=== PATIENT | male | born 1980 | race Caucasian/White ===

== ENCOUNTER 2021-01-11 16:13 | Observation (INO) | payer BC, SELFPAY ==
[2021-01-11 16:14] VITALS: BP 141/77; PULSE 77; RESP 18; TEMP 37.1; O2SAT 97; BMI 23.0
--- NOTE | 2021-01-11 17:11 | ED.DCSUM_ITS ---
- ER Visit Summary Date of Service: 01/11/21 Chief Complaint: Fioricet abuse History of Present Illness: The patient is a 40 M 3 of anxiety, PTSD and migraine headaches. States he gets Fioricet from his primary care provider and typically takes 90 of them in a 2-week period of time. A coworker brought him in today to consider getting detox. Patient thinks is more of an anxiety issue. He is not suicidal. That is a lot of issues going on at home including problems with his daughter. Physical Examination: Middle-aged male no acute distress vital signs stable afebrile. HEENT exam unremarkable. Neck nontender no lymphadenopathy. Lungs clear to auscultation bilaterally. Heart regular rhythm no murmur rate about 75. Abdomen soft nontender normal bowel sounds no peritoneal signs. Patient is moving all 4 extremities. Nontender. Normal range of motion. No edema. Neurologically is awake alert with no focal motor deficits. Test Results: None Emergency Department Course and Treatment: We will speak to the hospitalist to see if they would admit this patient for detox of Fioricet abuse. Treatment Plan: The list spoke to the detox physician who agreed on admission. Disposition: admission Impression: Fioricet abuse requesting detox History of anxiety This note was generated with [employer] dictation software. It may contain incorrect words, spelling, and punctuation that were not noted in review of the chart prior to signing ED Disposition - Plan for ED Patient: Referrals: NOT,DEFINED [NON-STAFF] -
--- NOTE | 2021-01-11 17:40 | NURSING ---
MED SURG MIGEL DETOX
--- NOTE | 2021-01-11 18:00 | HP.PCM_ITS ---
<Gabbi Ross - Last Filed: 01/11/21 18:00> Problem List (1) Barbiturate abuse-continuous Status: Chronic (2) Anxiety Status: Chronic (3) Traumatic brain injury Status: Chronic (4) Migraine Status: Acute (5) Tobacco abuse Status: Acute History of Present Illness Date of Admission: 01/11/21 Chief Complaint: Barbiturate withdrawal The patient is a 40 year old M who presents today interested in withdrawing from Fioricet. Patient reports he began taking this years ago following his traumatic brain injury due to migraines and takes up to 90 pills in a 2-week. Patient states he also suffers from anxiety and posttraumatic stress disorder. Patient states he has recently had increased stressors in his life including a possible divorce and his daughter being hospitalized. Patient also takes Xanax and Seroquel daily. Patient reports he has not slept in 4 days and has had low appetite. Past Medical History Past Medical History (Chronic Problems): Chronic Problems Traumatic brain injury (Chronic) Anxiety (Chronic) Barbiturate abuse-continuous (Chronic) PTSD (post-traumatic stress disorder) (Chronic) Allergies No Known Allergies Allergy (Verified 01/11/21 16:16) Home Medications: Ambulatory Orders Medication Instructions Recorded ALPRAZolam [Xanax] 1 mg PO BID 01/11/21 Acetaminophen/Butalbital/Caffe 1 tab PO TID 01/11/21 [Fioricet] Quetiapine Fumarate [Seroquel] 400 mg PO QHS 01/11/21 Surgical History: noncontributory Psychiatric History: Anxiety, Post traumatic stress Smoking Status: Current every day smoker Tobacco Use: Cigarettes Drugs: None - *Family History Maternal History Items: No pertinent history Paternal History Items: No pertinent history Review of Systems Constitutional: Denies: Chills, Fever, Weight Change HEENT: Reports: Head Aches - Chronic. Denies: Sinus Congestion, Sinus Drainage Cardiovascular: Denies: Chest Pain, Palpitations Respiratory: Denies: Cough, Shortness of breath at rest, Sputum production Gastrointestinal: Denies: Abdominal Pain, Nausea, Vomiting Genitourinary: Denies: Dysuria Musculoskeletal: Denies: Joint Pain, Joint Tenderness Skin: Denies: Rash, Wounds Neurological: Denies: Numbness, Tingling, Focal weakness Psychiatric: Reports: Anxiety. Denies: Depression, Homicidal Ideations, Anne cidal Ideations Hematologic/ Lymphatic: Denies: Easy Bruising, Easy Bleeding VTE Information - Inpt Only VTE Present on Admission: No VTE Mechan Device Prophylaxis: None VTE Pharm Prophylaxis ordered?: No Reason prophylaxis not ordered:: Treatment Not Indicated Patient Problems: Active and Suspected Problems Migraine (Acute) Tobacco abuse (Acute) - Physical Exam Vitals/I&O's: Vital Signs Temp Pulse Resp BP Pulse Ox 98.8 F 77 18 141/77 H 97 01/11/21 16:14 01/11/21 16:14 01/11/21 16:14 01/11/21 16:14 01/11/21 16:14 Oxygen Delivery Method Room Air Weight: 165 lb Body Mass Index (BMI) 23.0 General: Alert, Oriented x3, Cooperative HEENT: Atraumatic, PERRLA, EOMI, Normocephalic Neck: Supple, No JVD, Negative Carotid Bruits Lungs: Clear to auscultation, Normal air movement Cardiovascular: Regular rate, Regular Rhythm, Normal S1, Normal S2, No murmurs Abdomen: Bowel Sounds Present, Soft, Non Tender Extremities: No edema, Capillary Refill Less than 3 Seconds Skin: No rashes, No breakdown Musculoskeletal: No Tenderness to Palpation of Joints or Extremities Neurological: Cranial nerves II-XII grossly intact Psych/Mental Status: Anxious, Restless Assessment/Plan All Active Problems Migraine (Acute) Tobacco abuse (Acute) Barbiturate withdrawal (Acute) 1. Barbiturate withdrawal- will initiate phenobarbital taper and supportive medications per protocol. 2. Anxiety-continue Seroquel nightly. 3. Migraine s/p Traumatic brain injury-will hold off ordering medications at this time due to rebound potential. 4. Tobacco abuse- will initiate nicotine patch 21 mcg. This patient was seen by ARLIN Liu under the supervision of Dr. Campos. <Rachel Campos - Last Filed: 01/11/21 18:51> Problem List (1) PTSD (post-traumatic stress disorder) Status: Chronic (2) Traumatic brain injury Status: Chronic (3) Anxiety Status: Chronic (4) Barbiturate abuse-continuous Status: Chronic (5) Migraine Status: Acute (6) Tobacco abuse Status: Acute (7) Barbiturate withdrawal Status: Acute History of Present Illness I agree with the above and the following is a representation of my independent history and physical exam. Mr. Stuatr is a 40 year old WM the past medical history of chronic headaches status post TBI in 2002, anxiety, PTSD and tobacco abuse who presented to the emergency department at [facility] on 01/11/2021 for detox from Fioricet. 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 He has had increased stressors in his life that include a pending divorce from his and his daughter recently being hospitalized for a suicide attempt (she is 13 years old). He states has not slept in approximately 4 days. His last dose of Fioricet was yesterday. He has had decreased appetite. His vital signs in the emergency department other than mild hypertension are unremarkable. No labs were obtained. Upon my entering the room for examination the patient was messing with something near the computer and appeared startled when I walked in. He will be admitted to [place] [address] for Fioricet detox. I discussed the case with Dr. Jaeger and she recommended detox with phenobarbital. The patient does indicate on admission that he staying for no more than 2 days and will sign out after 2 days AMA if needed. Past Medical History Allergies No Known Allergies Allergy (Verified 01/11/21 16:16) Psychiatric History: Depression, - Lives: With Family Alcohol: None Review of Systems Constitutional: Reports: Anorexia, Malaise. Denies: Chills, Fever, Weakness, Weight Change, Fatigue Eyes: Denies: Blurred vision, Drainage, Eyelid Inflammation, Pain, Redness, Vision Change HEENT: Reports: Head Aches, Nasal bleeding, Nasal Congestion, Post Nasal Drip, Sinus Congestion, Sinus Drainage, Sore Throat, Visual Changes. Denies: Difficulty Hearing, Difficulty Swallowing, Ear Pain, Eye Pain Cardiovascular: Reports: Chest Pain, Chest Pressure, Chest Tightness, Edema, Light Headedness, Palpitations, Syncope Respiratory: Reports: Cough, Shortness of Breath, Sputum production, Wheezing Gastrointestinal: Denies: Constipation, Diarrhea, Dyspepsia, Hematemesis, Hem atochezia, Nausea, Melena, Vomiting Genitourinary: Denies: Dysuria, Frequency, Urgency Musculoskeletal: Denies: Back Pain, Joint Pain, Joint stiffness, Joint swelling, Joint Tenderness, Muscle pain, Neck Pain Skin: Denies: Dryness, Jaundice, Lesions, Pruritis, Rash, Skin Changes, Wounds Neurological: Denies: Balance problems, Blurred vision, Double vision, Change in Speech, Slurred speech, Confusion, Difficulty swallowing, Focal weakness, Headaches, Incoordination, Numbness, Tingling, Tremor, Seizures Psychiatric: Reports: Anxiety, Depression. Denies: Homicidal Ideations, Suicidal Ideations Endocrine: Denies: Change in Body Habitus, Heat/ Cold Intolerance, Polydipsia, Polyuria Hematologic/ Lymphatic: Denies: Adenopathy, Anemia, Easy Bruising, Petechiae, Purpura - Physical Exam Vitals/I&O's: Vital Signs Temp Pulse Resp BP Pulse Ox 98.6 F 69 18 130/95 H 98 01/11/21 18:39 01/11/21 18:39 01/11/21 18:39 01/11/21 18:39 01/11/21 18:39 Oxygen Delivery Method Room Air Weight: 74.843 kg Body Mass Index (BMI) 23.0 General: Alert, Oriented x3, Cooperative, No apparent distress, Well developed, Well nourished, - - Thin middle-aged male, appears stated age, appears extremely anxious HEENT: Atraumatic, PERRLA, EOMI, Normocephalic, EAC Clear Oral: Moist Mucosa, No Gingival or Mucosal Lesions/ Ulcerations Neck: Supple, Trachea Midline, Thyroid Normal Size and Texture Lungs: Clear to auscultation, Normal air movement, No rhonchi, No wheeze, No rales Cardiovascular: Regular rate, Regular Rhythm, Normal S1, Normal S2, No murmurs, No Ectopic Activity, No rub noted, No Gallop Abdomen: Bowel Sounds Present, Soft, Non Tender, Non-Distended Extremities: No clubbing, No cyanosis, No edema, Capillary Refill Less than 3 Seconds, Peripheral Pulses Normal Skin: No rashes, No breakdown Musculoskeletal: No Tenderness to Palpation of Joints or Extremities Neurological: Cranial nerves II-XII grossly intact, Deep Tendon Reflexes 2+/4 and Symmetrical, Neuro grossly intact, Motor Exam 5/5 strength throughout, Muscle tone normal, Sensory exam intact to light touch and pain, Coordination normal, Gait narrow based and stable Psych/Mental Status: Anxious, Restless, - - Somewhat agitated during conversation regarding the rules of the detox program Assessment/Plan ASSESSMENT Acute barbiturate withdrawal Chronic headaches History of TBI PTSD Anxiety/depression Tobacco abuse PLAN -Discussed the case with Dr. Pagan and she recommended detox with phenobarbital as we would with alcohol -Supportive medications available -180 consult -Rebound headaches are expected--> avoid specific treatment as any medications are going to cause further headaches upon discontinuation -Check a.m. CBC and BMP -Nicotine patch 21 mcg -Patient indicates he is leaving after 48 hours regardless of medical stability and will sign out AMA if at that time if needed Inpatient E&M: 44450 Init Hosp L2
[2021-01-11 18:15] VITALS: BP 145/66; PULSE 75; RESP 16; TEMP 36.8; O2SAT 100
[2021-01-11 18:39] VITALS: BP 130/95; PULSE 69; RESP 18; TEMP 37; O2SAT 98
[2021-01-11 18:40] VITALS: BMI 23.8
--- NOTE | 2021-01-11 18:45 | CM.ED ---
SOCIAL WORK Informant: Dr. Mortensen Patient admitted to [facility] for medical management of withdrawal from Fioricet. Patient reports to take 90 pills in a 2 week period. Patient with history of anxiety and PTSD. Patient reports takes Xanax and Seroquel daily. Call to [facility] Treatment NavigatorDarrian to update on patient's admission and room number. Plan: DIALLO Seay MSW, AEROSPACE PROJECT ENGINEER
[2021-01-11 18:48] VITALS: BMI 23.9
[2021-01-11 20:05] VITALS: BP 139/88; PULSE 78; RESP 16; TEMP 36.9; O2SAT 98
[2021-01-11 20:10] LABS: Absolute Lymphocyte Count 3.43 X10^3/uL (0.83-4.51); Absolute Neutrophil Count 4.7 X10^3/uL (2.0-7.7); Basophil# 0.04 X10^3/uL; Basophil% 0.4 % (0-1); Eosinophil# 0.07 X10^3/uL; Eosinophils% 0.8 % (0-5); Hematocrit 46.4 % (40-54); Hemoglobin 15.9 g/dL (13.0-16.5); Lymphocyte # 3.43 X10^3/ul (4.0); Lymphocyte % 37.6 % (19-41); Mean Corp Hgb Conc 34.3 g/dL (32-36); Mean Corpuscular Hgb 30.6 pg (27.0-32.0); Mean Corpuscular Volume 89.2 fL (80-94); Monocyte# 0.81 X10^3/uL; Monocyte% 8.9 % (0-10); NRBC Flagged by Analyzer 0 % (0-5); Neutrophil # 4.74 X10^3/uL (2.7-7.7); Platelet Count 274 K/mm3 (150-450); RBC Distribution Width CV 12.6 % (11.6-14.6); RBC Distribution Width SD 41.3 fl (35.1-43.9); White Blood Count 9.1 K/mm3 (4.4-11.0)
[2021-01-11] MEDS: Phenobarbital 32.4 MG Tablet 97.2 MG PO ×2 (20:17→23:34)
[2021-01-11] MEDS: MELATONIN 3 MG TABLET 6 MG PO (20:18)
[2021-01-11] MEDS: QUEtiapine 100 MG Tablet 400 MG PO (20:18)
[2021-01-11] MEDS: hydrOXYzine PAM 25 MG Capsule 50 MG PO (20:18)
[2021-01-11 20:39] VITALS: O2SAT 93
[2021-01-11 20:43] LABS: ALB/GLOB Ratio 1.2 RATIO (0.9-2.4); AST(SGOT) 12 U/L (15-37); Alanine Aminotransfer ALT/SGPT 24 U/L (16-61); Alkaline Phosphatase 74 U/L (45-117); Anion Gap 7 (5-15); BUN 6 mg/dL (7-18); BUN/Creat Ratio 5.4 RATIO (10-20); Calcium,Total 8.8 mg/dL (8.5-10.1); Chloride 111 mmol/L (98-107); Creatinine, Serum 1.12 mg/dL (0.70-1.30); EST Glomerular Filtration Rate 78 mL/min (>60); Est Glom Filt Rate - Afr Amer 94 mL/min (>60); Estimated Creatinine Clearance 92.34 ml/min; Globulin 3.3 g/dL (2.2-4.2); Glucose 100 mg/dL (74-106); Magnesium 2.2 mg/dL (1.6-2.6); Potassium 3.2 mmol/L (3.5-5.1); Protein, Total 7.3 g/dL (6.4-8.2); Sodium Level 145 mmol/L (136-145)
[2021-01-11] MEDS: Potassium Chloride Oral Tablet 20 MEQ 40 MEQ PO (23:34)
[2021-01-11 23:37] VITALS: BP 136/79; PULSE 68; RESP 18; TEMP 36.9; O2SAT 97
[2021-01-12] MEDS: Phenobarbital 32.4 MG Tablet 97.2 MG PO ×3 (03:36→11:01)
[2021-01-12 07:00] VITALS: BP 140/92; PULSE 77; RESP 16; TEMP 36.6; O2SAT 97
[2021-01-12 07:10] LABS: Anion Gap 4 (5-15); BUN 7 mg/dL (7-18); BUN/Creat Ratio 7.5 RATIO (10-20); Calcium,Total 8.9 mg/dL (8.5-10.1); Chloride 111 mmol/L (98-107); Creatinine, Serum 0.93 mg/dL (0.70-1.30); EST Glomerular Filtration Rate 97 mL/min (>60); Est Glom Filt Rate - Afr Amer 117 mL/min (>60); Glucose 93 mg/dL (74-106); Potassium 4.2 mmol/L (3.5-5.1); Sodium Level 143 mmol/L (136-145)
--- NOTE | 2021-01-12 08:24 | PN_ITS ---
Patient Problems: Active and Suspected Problems Migraine (Acute) Tobacco abuse (Acute) Barbiturate withdrawal (Acute) Reason for Visit: Acute barbiturate withdrawal Subjective: Patient is a 40-year-old gentleman admitted with withdrawal from barbiturates (Fioricet) Seen did express a desire to be discharged home. Will await 180 evaluation prior to coming up with a discharge decision Objective: GENERAL: cooperative HEENT: Atraumatic; EYES; Anicteric, Normal Conjunctiva NECK; supple, normal thyroid, RESPIRATORY: Diminished to auscultation CARDIOVASCULAR: Regular S1 S2, GI: soft, normoactive bowel sounds, : No Renal angle tenderness; EXTREMITIES: No edema, no clubbing, MUSCULOSKELETAL: no muscle waisting NEURO: Awake; no lateralizing signs. SKIN: No Rash PSYCH; Flat affect Vitals/I&O's: Vital Signs Temp Pulse Resp BP Pulse Ox 97.9 F 77 16 140/92 H 97 01/12/21 07:00 01/12/21 07:00 01/12/21 07:00 01/12/21 07:00 01/12/21 07:00 Oxygen Delivery Method Room Air Weight: 75.432 kg Body Mass Index (BMI) 23.8 Intake and Output for Last 24 Hours 01/10/21 01/11/21 01/12/21 23:59 23:59 23:59 Intake Total 480 / 480 240 / 240 Balance 480 / 480 240 / 240 Laboratory Results 01/11/21 19:50: WBC 9.1, RBC 5.20, Hgb 15.9, Hct 46.4, MCV 89.2, MCH 30.6, MCHC 34.3, RDW Std Deviation 41.3, RDW Coeff of Jayde 12.6, Plt Count 274, MPV 10.0, Immature Gran % (Auto) 0.300, Neut % (Auto) 52.0, Lymph % (Auto) 37.6, [place] % (Auto) 8.9, Eos % (Auto) 0.8, Baso % (Auto) 0.4, Absolute Neuts (auto) 4.7, Absolute Lymphs (auto) 3.43, Nucleated RBC % 0 01/11/21 19:50: Sodium 145, Potassium 3.2 L, Chloride 111 H, Carbon Dioxide 27.0, Anion Gap 7, BUN 6 L, Creatinine 1.12, Estim Creat Clear Calc 92.34, Est GFR (MDRD) Af Amer 94, Est GFR (MDRD) Non-Af 78, BUN/Creatinine Ratio 5.4 L, Glucose 100, Calcium 8.8, Magnesium 2.2, Total Bilirubin 0.30, AST 12 L, ALT 24, Alkaline Phosphatase 74, Total Protein 7.3, Albumin 4.0, Globulin 3.3, Albumin/Globulin Ratio 1.2 01/12/21 06:45: Sodium 143, Potassium 4.2, Chloride 111 H, Carbon Dioxide 28.0, Anion Gap 4 L, BUN 7, Creatinine 0.93, Estim Creat Clear Calc 111.20, Est GFR (MDRD) Af Amer 117, Est GFR (MDRD) Non-Af 97, BUN/Creatinine Ratio 7.5 L, Glucose 93, Calcium 8.9 Current Medications Dicyclomine HCl (Dicyclomine 10 Mg Capsule) 20 mg PO Q6H PRN PRN PRN Reason: abdominal discomfort Hydroxyzine Pamoate (Hydroxyzine Genevieve 25 Mg Capsule) 50 mg PO Q4H PRN PRN PRN Reason: mild anxiety Last Admin: 01/11/21 20:18 Dose: 50 mg Documented by: Loperamide HCl (Loperamide 2 Mg Capsule) 2 mg PO Q4H PRN PRN PRN Reason: LOOSE STOOLS Melatonin (Melatonin 3 Mg Tablet) 6 mg PO QHS PRN PRN PRN Reason: INSOMNIA Last Admin: 01/11/21 20:18 Dose: 6 mg Documented by: Ondansetron HCl (Ondansetron 8 Mg Tablet) 8 mg PO Q8H PRN PRN PRN Reason: NAUSEA Phenobarbital (Phenobarbital 32.4 Mg Tablet) 97.2 mg PO Q4H [facility]; Taper Stop: 01/16/21 03:29 Last Admin: 01/12/21 07:01 Dose: 97.2 mg Documented by: Quetiapine Fumarate (Quetiapine 100 Mg Tablet) 400 mg PO QHS EDIL Last Admin: 01/11/21 20:18 Dose: 400 mg Documented by: STROKE Vital Signs/Narrative: Vital Signs Temp Pulse Resp BP Pulse Ox 01/12/21 07:00 97.9 F 77 16 140/92 H 97 Medical Necessity - Tobacco Use Smoking Status: Current every day smoker Tobacco Use: Cigarettes Assessment/Plan All Active Problems Migraine (Acute) Tobacco abuse (Acute) Barbiturate withdrawal (Acute) Patient is a 40-year-old gentleman admitted with withdrawal from barbiturates (Fioricet) Barbiturate withdrawal ?Patient has been admitted to a monitored bed currently being managed with phenobarb taper 2. Chronic headaches 3. Depression with anxiety 4. PTSD 5. History of traumatic brain injury 6. Tobacco dependence - Counseled on cessation, offered nicotine patch for tobacco cravings 7. DVT prophylaxis low risk did encourage ambulation Inpatient E&M: 26355 Subs Hosp L2
[2021-01-12 09:20] VITALS: BP 144/84; PULSE 80; RESP 18; TEMP 36.2; O2SAT 98
[2021-01-12 12:54] LABS: Amphetamine Urine VISTA NEGATIVE (<1000 ng/mL); Barbiturate Urine VISTA POSITIVE (< 200 ng/mL); Benzodiazepine Urine VISTA NEGATIVE (< 200 ng/mL); Cocaine Urine VISTA NEGATIVE (< 300 ng/mL); Ecstacy Urine VISTA NEGATIVE (< 500 ng/mL); Methadone Urine VISTA NEGATIVE (< 300 ng/mL); PCP Urine VISTA NEGATIVE (< 25 ng/mL); THC Urine VISTA NEGATIVE (< 50 ng/mL); Vista UDS pH Range 5
--- NOTE | 2021-01-12 14:03 | DCINST_ITS ---
- Discharge Diagnoses Current Active Problems: Current Active and Chronic Problems Traumatic brain injury (Chronic) Anxiety (Chronic) Barbiturate abuse-continuous (Chronic) Migraine (Acute) Tobacco abuse (Acute) PTSD (post-traumatic stress disorder) (Chronic) Barbiturate withdrawal (Acute) You will use the following diet at home:: No restrictions Allergies/Adverse Reactions: Allergies No Known Allergies Allergy (Verified 01/11/21 16:16) Medications to take at Discharge Quetiapine Fumarate [Seroquel] 400 mg PO QHS 01/11/21 Primary Care Physician: NOT,DEFINED [NON-STAFF] - Test Results: Test results from this visit will be discussed in further detail at your follow- up appointment, if applicable. Proposed Discharge Date: 01/12/21
--- NOTE | 2021-01-12 14:08 | PCM.DC.SUM ---
Discharge Date and Diagnosis - Problem List Patient Problems: Active and Suspected Problems Migraine (Acute) Tobacco abuse (Acute) Barbiturate withdrawal (Acute) Date of Admission: 01/11/21 Date of Discharge: 01/12/21 - Primary Discharge Diagnosis Acute Problems: Active Problems Migraine (Acute) Tobacco abuse (Acute) Barbiturate withdrawal (Acute) - Secondary Discharge Diagnosis Chronic Problems: Chronic Problems Traumatic brain injury (Chronic) Anxiety (Chronic) Barbiturate abuse-continuous (Chronic) PTSD (post-traumatic stress disorder) (Chronic) Hospital Course and Treatment Summary of Care Provided: Patient is a 40-year-old gentleman admitted with withdrawal from barbiturates (Fioricet) Barbiturate withdrawal ?Patient has been admitted to a monitored bed currently being managed with phenobarb taper -Patient requested to be discharged just the day after his admission patient was also seen and evaluated by 180 counseling services he was offered outpatient counseling he declined. He was discharged home instructed to call his primary care physician for subsequent care 2. Chronic headaches 3. Depression with anxiety 4. PTSD 5. History of traumatic brain injury 6. Tobacco dependence - Counseled on cessation, offered nicotine patch for tobacco cravings 7. DVT prophylaxis low risk did encourage ambulation Patient Problems: Active and Suspected Problems Migraine (Acute) Tobacco abuse (Acute) Barbiturate withdrawal (Acute) - Physical Exam Vitals/I&O's: Vital Signs Temp Pulse Resp BP Pulse Ox 97.1 F L 80 18 144/84 H 98 01/12/21 09:20 01/12/21 09:20 01/12/21 09:20 01/12/21 09:20 01/12/21 09:20 Oxygen Delivery Method Room Air Weight: 75.432 kg Body Mass Index (BMI) 23.8 Intake and Output for Last 24 Hours 01/10/21 01/11/21 01/12/21 23:59 23:59 23:59 Intake Total 480 / 480 600 / 600 Balance 480 / 480 600 / 600 General: Alert HEENT: Atraumatic Neurological: Neuro grossly intact Psych/Mental Status: Normal Affect Laboratory Results 01/11/21 19:50: WBC 9.1, RBC 5.20, Hgb 15.9, Hct 46.4, MCV 89.2, MCH 30.6, MCHC 34.3, RDW Std Deviation 41.3, RDW Coeff of Jayde 12.6, Plt Count 274, MPV 10.0, Immature Gran % (Auto) 0.300, Neut % (Auto) 52.0, Lymph % (Auto) 37.6, [place] % (Auto) 8.9, Eos % (Auto) 0.8, Baso % (Auto) 0.4, Absolute Neuts (auto) 4.7, Absolute Lymphs (auto) 3.43, Nucleated RBC % 0 01/11/21 19:50: Sodium 145, Potassium 3.2 L, Chloride 111 H, Carbon Dioxide 27.0, Anion Gap 7, BUN 6 L, Creatinine 1.12, Estim Creat Clear Calc 92.34, Est GFR (MDRD) Af Amer 94, Est GFR (MDRD) Non-Af 78, BUN/Creatinine Ratio 5.4 L, Glucose 100, Calcium 8.8, Magnesium 2.2, Total Bilirubin 0.30, AST 12 L, ALT 24, Alkaline Phosphatase 74, Total Protein 7.3, Albumin 4.0, Globulin 3.3, Albumin/Globulin Ratio 1.2 01/12/21 06:45: Sodium 143, Potassium 4.2, Chloride 111 H, Carbon Dioxide 28.0, Anion Gap 4 L, BUN 7, Creatinine 0.93, Estim Creat Clear Calc 111.20, Est GFR (MDRD) Af Amer 117, Est GFR (MDRD) Non-Af 97, BUN/Creatinine Ratio 7.5 L, Glucose 93, Calcium 8.9 01/12/21 11:05: Urine Opiates Screen NEGATIVE, Urine Methadone Screen NEGATIVE, Ur Barbiturates Screen POSITIVE H, Ur Phencyclidine Scrn NEGATIVE, Ur Amphetamines Screen NEGATIVE, U Methamphetamin-MDMA NEGATIVE, U Benzodiazepines Scrn NEGATIVE, Urine Cocaine Screen NEGATIVE, U Cannabinoids Screen NEGATIVE, Ur Drug Screen Comment Current Medications Dicyclomine HCl (Dicyclomine 10 Mg Capsule) 20 mg PO Q6H PRN PRN PRN Reason: abdominal discomfort Hydroxyzine Pamoate (Hydroxyzine Genevieve 25 Mg Capsule) 50 mg PO Q4H PRN PRN PRN Reason: mild anxiety Last Admin: 01/11/21 20:18 Dose: 50 mg Documented by: Loperamide HCl (Loperamide 2 Mg Capsule) 2 mg PO Q4H PRN PRN PRN Reason: LOOSE STOOLS Melatonin (Melatonin 3 Mg Tablet) 6 mg PO QHS PRN PRN PRN Reason: INSOMNIA Last Admin: 01/11/21 20:18 Dose: 6 mg Documented by: Nicotine (Nicotine 21 Mg Patch) 21 mg TD DAILY [facility] Last Admin: 01/12/21 11:00 Dose: 21 mg Documented by: Ondansetron HCl (Ondansetron 8 Mg Tablet) 8 mg PO Q8H PRN PRN PRN Reason: NAUSEA Phenobarbital (Phenobarbital 32.4 Mg Tablet) 97.2 mg PO Q4H [facility]; Taper Stop: 01/16/21 03:29 Last Admin: 01/12/21 11:01 Dose: 97.2 mg Documented by: Quetiapine Fumarate (Quetiapine 100 Mg Tablet) 400 mg PO QHS [facility] Last Admin: 01/11/21 20:18 Dose: 400 mg Documented by: Discharge Diet: No Restrictions Discharge Activity: Return to Normal Activity Home Medications: Medications to take at Discharge RX: Quetiapine Fumarate [Seroquel] 400 mg PO QHS 01/11/21 Primary Care Physician: NOT,DEFINED [NON-STAFF] - Disposition: Home Minutes spent on discharge:: 35 Patient Condition:: Stable Medical Necessity - Tobacco Use Smoking Status: Current every day smoker Tobacco Use: Cigarettes Meaningful Use Info Meaningful Use Diagnoses (Choose all that apply): None applicable Inpatient E&M: 07740 Disch Hosp
[2021-01-12 14:12] VITALS: BP 144/84; PULSE 80; RESP 18; TEMP 36.2; O2SAT 98
== END 2021-01-12 14:45 | disposition home or self-care (01) ==
LOC: ED 17:28 → PCU 01-12 07:15
PROVIDERS: Nurse Practitioner Family; Admitting Provider Internal Medicine; Emergency Provider Emergency Medicine; Visit Provider Internal Medicine
DX: F13.239 Sedative, hypnotic or anxiolytic dependence with withdrawal, unspecified (principal); G43.909 Migraine, unspecified, not intractable, without status migrainosus; F43.12 Post-traumatic stress disorder, chronic; Z87.820 Personal history of traumatic brain injury; Z79.899 Other long term (current) drug therapy; F17.210 Nicotine dependence, cigarettes, uncomplicated; F41.8 Other specified anxiety disorders
CPT/HCPCS: 36415; 80048; 80053; 80307; 83735; 85025; 99218; 99283; 99406; G0378